=== PATIENT | male | born 1955 | race Caucasian/White ===

== ENCOUNTER → 2024-03-05 10:59 | Outpatient (BNVA) | payer MEDICARE, SELFPAY | PROVIDERS: Referring Provider Nurse Practitioner Family; Visit Provider Student in an Organized Health Care Education/Training Program | DX: Z12.11 Encounter for screening for malignant neoplasm of colon (principal) | CPT/HCPCS: 99024; 99204 ==

== ENCOUNTER 2024-05-06 13:28 | Outpatient (CLI) | payer MEDICARE, SELFPAY ==
--- NOTE | 2024-05-06 13:31 | US_ITS ---
WS: [id number] ULTRASOUND SOFT TISSUES LEFT posterior neck. HISTORY: LYMPHADENOPATHY COMPARISON: None available. TECHNIQUE: 2-D and color Doppler imaging is submitted. Very dense area of shadowing in the epidermis of the posterior LEFT neck measures 2.4 x 2.1 x 0.8 cm. The dense shadowing is likely due to of calcification. No additional abnormalities are identified. T here is displacement of the fascial planes. US/US soft tissue head neck [id number] IMPRESSION: Heavily calcified nodule in the posterior LEFT neck. This may be an abnormal ly mph node. This can be further evaluated by neck CT with IV contrast.
== END 2024-05-06 13:29 | disposition home or self-care (01) ==
LOC: RAD 13:30
PROVIDERS: PCP Nurse Practitioner Family; Visit Provider Nurse Practitioner Family
DX: R22.1 Localized swelling, mass and lump, neck (principal)
CPT/HCPCS: 76536

== ENCOUNTER 2024-05-25 07:47 | Outpatient (CLI) | payer MEDICARE, SELFPAY ==
--- NOTE | 2024-05-25 07:51 | CT_ITS ---
WS: [id number] CT NECK TECHNIQUE: Contrast-enhanced CT of the neck with coronal and sagittal reformatted images. CLINICAL INFORMATION: LYMPHADENOPATHY COMPARISON: Ultrasound 05/06/2024 DLP: 197.[address] scans at [facility] use at least one of these dose optimization techniques: automated e xposure control; mA and/or kV adjustment per patient size (includes targeted exams where dose is matc hed to clinical indication); or iterative reconstruction. FINDINGS: Densely calcified nodule in the area of concern measuring 2.0 cm. This is densely calcified and is pr obably benign. This may present a densely calcified sebaceous cyst. RIGHT intraparotid lymph nodes. LEFT gland is normal. Submandibular glands are normal. Peripherally e nhancing nodule in the RIGHT vallecula measuring 7 mm. Further evaluation with endoscopy. Small neopl asm not excluded. Normal parapharyngeal fat. No evidence of supraglottic narrowing. Normal glottis. Normal piriform sin uses. Subglottic airway is normal. Tiny RIGHT thyroid nodule. Emphysematous changes in the lung apice s. Moderate spondylitic changes cervical spine. No cervical lymphadenopathy. Partial opacification paranasal sinuses. Mastoid air cells are well aerated. CT/CT neck w con* [id number] IMPRESSION: 1. Densely calcified nodule in the area of concern LEFT upper neck has a benig n appearance. This may present a calcified sebaceous cyst described above. 2. Peripherally enhancing nodule in the RIGHT vallecula measuring 7 mm. Recomm end further evaluation with endoscopy. Small neoplasm not excluded. 3. Mucosal thickening in the partially visualized paranasal sinuses with opaci fication of the ethmoid air cells. 4. No other acute findings.
[2024-05-25 08:19] LABS: Blood Urea Nitrogen 10 mg/dL (8-23); Glomerular Filtration Rate 66.2 mL/min (90-130)
[2024-05-25] MEDS: iohexol 350 mg/mL 500 mL Btl (per mL) IV (08:28)
== END 2024-05-25 07:48 | disposition home or self-care (01) ==
LOC: RAD 07:48
PROVIDERS: Radiology Diagnostic Radiology; PCP Nurse Practitioner Family; Visit Provider Nurse Practitioner Family
DX: R22.1 Localized swelling, mass and lump, neck (principal); D10.5 Benign neoplasm of other parts of oropharynx; E04.1 Nontoxic single thyroid nodule; J43.9 Emphysema, unspecified
CPT/HCPCS: 70491; 82565; 84520